=== PATIENT | male | born 1960 | race Caucasian/White ===

== ENCOUNTER → 2016-08-18 | Outpatient (CLI) | payer OTHER ==
--- NOTE | ~2016-08-18 | EXE ---
[facility] [email or web address] [address] STRESS ECHOCARDIOGRAM Name: SAW GAO Room #: REG [facility]#: [id number] Admission: 08/18/16 Attend Phys: Kai Mobley MD Discharge: Date of : 60 Date of Service: 08/18/16 1106 Report #: [id number] THIS REPORT FOR: //name// APPROVED REPORT Exam: Stress Echocardiogram Indication: Chest pain, CAD Patient Location: Out-Patient Stress Nurse: Lakshmi Tompkins RN Status: routine HR: 61 bpm Medical History Medical History: [place], stent Allergies: No known drug allergies Cardiac Risk Factors: HTN, Hyperlipidemia Procedure The patient underwent an Exercise Stress Test using the Rufino Protocol. Blood pressure, heart rate, and EKG were monitored. An Echocardiogram was performed by histopathology technician in four stages in quad fashion. At peak stress, four selected images were obtained and placed side by side with resting images for comparison. Stress Test Details Stress Test: Exercise stress testing was performed using a Rufino protocol. HR Resting HR: 61 bpm Max Heart Rate (APMHR): 165 bpm Max HR Achieved: 173 bpm Target HR (85% APMHR): 140 bpm % of APMHR: 104 HR response to stress: Normal HR response to stress BP Resting BP: 134/88 mmHg Max BP: 210/100 mmHg Recovery BP: 142/92 mmHg ECG Resting ECG: Sinus Rhythm, nonspecific ST-T abnormalities Stress ECG: Sinus Rhythm, nonspecific ST-T abnormalities ST Change: Non-ischemic Clinical [facility] [address] [place] [address] STRESS ECHOCARDIOGRAM Name: SAW GAO Room #: REG [facility]#: [id number] Admission: 08/18/16 Attend Phys: Kai Mobley MD Discharge: Date of : 60 Date of Service: 08/18/161105 Report #: [id number] Reason for Termination: Target heart rate reached, moderate fatigue. Stress Symptoms: Dyspnea Exercise duration: 9 min 31 sec Exercise capacity: 11.80 METs Pre-Stress Echo The resting Echocardiogram showed normal left ventricular contractility with an estimated Ejection Fraction of about 55-60%. Mild MR, trace AI, trace TR Post-Stress Echo The stress Echocardiogram showed normal left ventricular contractility with an estimated Ejection Fraction of about >70%. Conclusion Clinical Response: Non-ischemic Exercise Capacity: Average Stress ECG Response: Non-ischemic Stress Echo Images: Non-ischemic Other Information Study Quality: Adequate <ELECTRONICALLY SIGNED> By: Kai Mobley MD 08/18/166 05 05 Kai Mobley MD /INF
== END ==
LOC: CV 09:37
DX: I25.10 Atherosclerotic heart disease of native coronary artery without angina pectoris (principal); I10 Essential (primary) hypertension; E78.5 Hyperlipidemia, unspecified; Z95.5 Presence of coronary angioplasty implant and graft

== ENCOUNTER → 2018-02-08 | Outpatient (CLI) | payer OTHER ==
--- NOTE | ~2018-02-08 | 2DMMODE ---
[facility] [place] [address] 2 D/M-MODE ECHOCARDIOGRAM Name: SIMASAW CASTILLOICK Room #: REG [facility]#: [id number] Admission: 02/08/18 Attend Phys: Kai Mobley MD Discharge: Date of : 60 Date of Service: 02/08/18 1536 Report #: [id number] THIS REPORT FOR: //name// APPROVED REPORT Study performed: 02/08/2018 14:09:09 EXAM: Comprehensive 2D, Doppler, and color-flow Echocardiogram Patient Location: Out-Patient Status: routine BSA: 2.22 HR: 60 bpm BP: 118/74 mmHg Rhythm: NSR Other Information Study Quality: Adequate Indications CAD Hx: Stents 2D Dimensions RVDd: 35.94 mm IVSd: 10.00 (7-11mm) LVOT Diam: 23.27 (18-24mm) LVDd: 49.12 mm PWd: 9.83 (7-11mm) Ascending Ao: 30.20 (22-36mm) LVDs: 28.88 (25-40mm) Aortic Root: 33.84 mm Volumes Left Atrial Volume (Systole) Single Plane 4CH: 34.34 mL Single Plane 2CH: 56.68 mL LA ESV Index: 23.00 mL/m2 Aortic Valve AoV Peak Will.: 1.36 m/s AO Peak Gr.: 7.42 mmHg LVOT Max P.07 mmHg LVOT Max V: 1.13 m/s CLAUDINE Vmax: 3.51 cm2 Mitral Valve E/A Ratio: 1.6 MV Decel. Time: 190.27 ms [facility] [address] [place] [address] 2 D/M-MODE ECHOCARDIOGRAM Name: SAW GAO Room #: REG CL [facility]#: [id number] Admission: 02/08/18 Attend Phys: Kai Mobley MD Discharge: Date of : 60 Date of Service: 02/08/18 1536 Report #: [id number] MV E Max Will.: 1.32 m/s MV A Will.: 0.83 m/s MV PHT: 55.18 ms IVRT: 55.36 ms Pulmonary Valve PV Peak Will.: 0.85 m/s PV Peak Gr.: 2.91 mmHg Pulmonary Vein P Vein S: 0.78 m/s P Vein D: 0.77 m/s P Vein S/D Ratio: 1.01 Tricuspid Valve TR Peak Will.: 2.30 m/s RAP Estimate: 5.00 mmHg TR Peak Gr.: 21.13 mmHg PA Pressure: 26.00 mmHg Left Ventricle The left ventricle is normal size. There is normal LV segmental wall motion. There is normal left ventricular wall thickness. Left ventricular systolic function is normal. LVEF is 60-65%. Grade I - abnormal relaxation pattern. Right Ventricle The right ventricle is normal size. The right ventricular systolic function is normal. Atria The left atrium size is normal. The right atrium size is normal. Aortic Valve The aortic valve is normal in structure. Trace aortic regurgitation. There is no aortic valvular stenosis. Mitral Valve The mitral valve is normal in structure. Mild mitral regurgitation. Tricuspid Valve The tricuspid valve is normal in structure. Mild tricuspid regurgitation. Estimated PAP is 25-30mmHg. Pulmonic Valve The pulmonary valve is normal in structure. Trace pulmonic [facility] [address] [place] [address] 2 D/M-MODE ECHOCARDIOGRAM Name: SAW GAO Room #: REG [facility]#: [id number] Admission: 02/08/18 Attend Phys: Kai Mobley MD Discharge: Date of : 60 Date of Service: 02/08/18 1536 Report #: [id number] regurgitation. Great Vessels The aortic root is normal in size. The ascending aorta is normal in size. IVC is normal in size and collapses >50% with inspiration. Pericardium There is no pericardial effusion. <Conclusion> The left ventricle is normal size. There is normal left ventricular wall thickness. Left ventricular systolic function is normal. The right ventricle is normal size. The left atrium size is normal. Trace aortic regurgitation. Mild mitral regurgitation. Mild tricuspid regurgitation. Estimated PAP is 25-30mmHg. <ELECTRONICALLY SIGNED> By: Kai Mobley MD 02/08/18 1536 1536 1536 Kai Mobley MD /INF
== END ==
LOC: CV 12:38
DX: I08.1 Rheumatic disorders of both mitral and tricuspid valves (principal); I25.10 Atherosclerotic heart disease of native coronary artery without angina pectoris; Z95.5 Presence of coronary angioplasty implant and graft

== ENCOUNTER → 2018-07-26 | Outpatient (CLI) | payer OTHER ==
--- NOTE | 2018-07-26 14:42 | EXE ---
[facility] [employer] [address] STRESS ECHOCARDIOGRAM Name: SAW GAO Room #: REG [facility]#: [id number] ������������� Admission: 07/26/18 ������������� Attend Phys: Kai Mobley MD Discharge: ��� ������������� ��� Date of : 60 Date of Service: 07/26/18 1441 �� Report #: [id number] �������� ��������������������������������������������[id number] THIS REPORT FOR: //name// APPROVED REPORT Study performed: 07/26/2018 13:18:24 Exam: Stress Echocardiogram Indication: CAD Patient Location: Out-Patient Stress Nurse: Shilpi Baron RN Ht: 5 ft 8 in Rhythm: NSR Medical History Medications: LISTED Allergies: No known drug allergies Cardiac Risk Factors: HTN Previous Cardiac Procedures: PCI Procedure The patient underwent an Exercise Stress Test using the Rufino Protocol. Blood pressure, heart rate, and EKG were monitored. An Echocardiogram was performed by veterinary surgery technician in four stages in quad fashion. At peak stress, four selected images were obtained and placed side by side with resting images for comparison. Stress Test Details Stress Test: Exercise stress testing was performed using a Rufino protocol. HR Resting HR: 73 bpm Max Heart Rate (APMHR): 163 bpm Max HR Achieved: 181 bpm Target HR (85% APMHR): 138 bpm % of APMHR: 111 Recovery HR: 105 bpm HR response to stress: Normal HR response to stress BP Resting BP: 128/76 mmHg Max BP: 196/82 mmHg Recovery BP: 140/82 mmHg BP response to stress: Normal blood pressure response to stress. ECG [facility] [address] [address] STRESS ECHOCARDIOGRAM Name: SAW GAO Room #: REG [facility]#: [id number] ������������� Admission: 07/26/18 ������������� Attend Phys: Kai Mobley MD Discharge: ��� ������������� ��� Date of : 60 Date of Service: 07/26/18 1441 �� Report #: [id number] �������� ��������������������������������������������[id number] Resting ECG: Sinus Rhythm Stress ECG: Sinus Rhythm, nonspecific ST-T abnormalities ST Change: Non-ischemic Clinical Reason for Termination: Completed protocol Exercise duration: 9 min 33 sec Highest Stage Achieved: Stage 4: 4.2 mph at 16% grade. Exercise capacity: 11.80 METs Pre-Stress Echo The resting Echocardiogram showed normal left ventricular contractility with an estimated Ejection Fraction of about 55-60%. Normal wall motion in all segments on baseline images. Post-Stress Echo The stress Echocardiogram showed normal left ventricular contractility with an estimated Ejection Fraction of about 65-70%. Normal augmentation of wall motion in all segments on post stress images. Clinical No clinical or ECG evidence for ischemia. Conclusion Clinical Response: Non-ischemic Exercise Capacity: Average Stress ECG Response: Non-ischemic Stress Echo Images: Non-ischemic The left ventricle is normal in size and wall thickness in both the rest and stress images. Other Information Study Quality: Adequate <Conclusion> The left ventricle is normal in size and wall thickness in both the rest and stress images. ��������������������������������������������� <ELECTRONICALLY SIGNED> ���������������������������������������� By: aKi Mobley MD ��������������������������������������������� 07/26/18 144 40 144 Kai Mobley MD /INF
== END ==
LOC: CV 10:29
DX: I25.10 Atherosclerotic heart disease of native coronary artery without angina pectoris (principal)

== ENCOUNTER → 2020-02-06 | Outpatient (CLI) | payer OTHER | LOC: SJCVCIMAG 10:27 | PROVIDERS: ATTEND Internal Medicine Cardiovascular Disease | DX: I25.10 Atherosclerotic heart disease of native coronary artery without angina pectoris (principal); I10 Essential (primary) hypertension ==

== ENCOUNTER → 2021-02-05 | Outpatient (CLI) | payer OTHER | LOC: SJCVCIMAG 08:38 | PROVIDERS: ATTEND Internal Medicine Cardiovascular Disease | DX: I25.10 Atherosclerotic heart disease of native coronary artery without angina pectoris (principal); Z95.1 Presence of aortocoronary bypass graft ==